=== PATIENT | female | born 1980 | race Caucasian/White ===

== ENCOUNTER → 2021-10-20 | Outpatient (CLI) | payer SELFPAY ==
--- NOTE | 2021-10-20 09:01 | Diagnostic Imaging Report ---
PROCEDURE: MRI lumbar spine. TECHNIQUE: Multiplanar, multisequence MRI of the lumbar spine was performed without contrast. INDICATION: Chronic pain Lumbar spine MRI 10/20/2021. FINDINGS: Tip of the conus is unremarkable in appearance and location. Alignment of the spine is preserved no fractures or subluxations. L1-L2: There is intervertebral space narrowing, disc desiccation. Minimal broad-based bulging is material is noted. There is bilateral facet hypertrophy. No central stenosis. There is a minimal bilateral neural foraminal narrowing L2-L3: There is bilateral facet and ligamentum flavum hypertrophy. There is no central stenosis. Neural foramina demonstrate mild narrowing bilaterally. L3-L4: There is bilateral facet and ligamentum flavum hypertrophy. No central stenosis. There is moderate bilateral neural foraminal narrowing. L4-L5: There is disc desiccation with a mild broad-based bulging disc and a left paracentral annular tear. There is bilateral facet ligamentum flavum hypertrophy. There is no significant central stenosis. There is moderate bilateral neural foraminal narrowing. L5-S1: There is disc desiccation with a central disc protrusion. There is bilateral facet hypertrophy. The central canal is patent. There is a mild bilateral neural foraminal narrowing. Visualized intra-abdominal structures unremarkable. IMPRESSION: 1. Multilevel degenerative findings as discussed above. Dictated by: Dictated on workstation # [id number]
== END ==
LOC: RAD 08:00
PROVIDERS: ATTEND Nurse Practitioner Family
DX: M48.061 Spinal stenosis, lumbar region without neurogenic claudication (principal); M47.816 Spondylosis without myelopathy or radiculopathy, lumbar region; M47.817 Spondylosis without myelopathy or radiculopathy, lumbosacral region; M51.27 Other intervertebral disc displacement, lumbosacral region; M51.36 Other intervertebral disc degeneration, lumbar region
CPT/HCPCS: 72148